=== PATIENT | male | born 1995 | race African-American/Black ===

== ENCOUNTER 2018-12-17 06:35 | Day surgery (SDC) | payer BC ==
[2018-12-17 08:01] VITALS: BP 142/87; TEMP 98.1; BMI 34.7
--- NOTE | 2018-12-17 09:12 | RAD ---
ABDOMINAL ULTRASOUND: HISTORY: Left upper quadrant pain. Multiple longitudinal and transverse images of the abdomen obtained using multi hertz curvilinear tra nsducer. Real-time, spectral waveform Doppler analysis and color flow images are obtained. FINDINGS: The liver is unremarkable. There is a hepatic parenchymal cyst measuring 2.3 x 1.5 x 2.6 cm. Normal hepatopetal flow seen. The gallbladder is unremarkable. No evidence of intrahepatic biliary dilatation seen. The spleen is unremarkable measuring 10.1 x 10.0 x 2.7 cm. Visualized portions of the pancreas are unremarkable. Both kidneys are of normal contour, axis, and size, with right kidney measuring 9.9 and left kidney 1 0.7 cm from pole to pole. No evidence of ascites seen. Abdominal aorta and inferior vena cava are unremarkable. IMPRESSION: Left hepatic parenchymal cyst. Transcribed Date/Time: 12/17/2018 9:30 AM
--- NOTE | 2018-12-17 09:47 | CT ---
MYELOGRAM AND POST MYELOGRAM CT: HISTORY: Spinal stenosis. Radiation dosimetry: Fluoroscopy time 2.2 minutes. DAP 2.7 mGy/cm2. TECHNIQUE/FINDINGS: Informed consent was obtained from the patient. The right L1 to posterior spine was prepped and drape d in the usual sterile manner. 1% lidocaine solution was used to anesthetize overlying soft tissues. Using a paraspinal L1-2 interlaminar approach, the thecal sac was accessed. A 22-gauge spina l needle was placed into the subarachnoid space. This was confirmed using a small injection dose. This confirmed presence of the needle in the subarachnoid space. A total of 12 mL of sterile iodinate d Isovue 200 contrast was injected. The patient had an exaggerated move which partially pulled the needle into the epidural space; however, there was adequate volume of contrast in the subarachnoid sp angelica. The epidural component does not significantly compress the thecal sac. T12-L1: Unremarkable. L1-2: Unremarkable. 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 Mild but not significant degree of central stenosis seen. L3-4: Unremarkable. L4-5: There is a large central disc protrusion compressing the thecal sac resulting in moderate compr ession of the thecal sac centrally. There also appears to be some adhesed intrathecal areas of fibrosis. This may represent possible arachnoiditis from previous insult or injury. The nerve roots d o appear to be adhesed to one another at the L4-5 level. L5-S1: Unremarkable. 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 Transcribed Date/Time: 12/17/2018 10:12 AM
== END 2018-12-17 09:40 | disposition home or self-care (01) ==
LOC: RAD 06:35 → EDSTATUS 08:00 → RAD 09:40
PROVIDERS: ATTEND Physician Assistant Surgical
PROC: B02B1ZZ Computerized Tomography (CT Scan) of Spinal Cord using Low Osmolar Contrast (ICD-10-PCS; principal; 2018-12-17)
DX: M54.16 Radiculopathy, lumbar region (principal); M48.061 Spinal stenosis, lumbar region without neurogenic claudication; K76.89 Other specified diseases of liver
CPT/HCPCS: 62304; 72132